=== PATIENT | male | born 1940 | race Caucasian/White ===

== ENCOUNTER 2022-07-31 16:16 | Emergency (ER) | payer OTHER, MEDICAID ==
[~2022-07-31] VITALS: Ht 170.2 cm; Wt 59.0 kg
--- NOTE | 2022-07-31 16:18 | NUR ---
PT PLACED IN BED 08 BY [facility]
[2022-07-31 16:20] VITALS: BP 119/72
[2022-07-31] MEDS ORDERED: BACITRACIN OINT 500 UNITS/GM PKT TP ONE (16:25)
[2022-07-31] MEDS ORDERED: HYDROcodone/APAP 5/325 MG 1 TAB TAB PO ONE (16:25)
--- NOTE | 2022-07-31 16:55 | NUR ---
X-Ray at bedside.
--- NOTE | 2022-07-31 18:17 | NUR ---
STACEY FROM [facility] GIVEN REPORT, PT WILL BE DX BACK TO FACILITY.
[2022-07-31] MEDS ORDERED: BACI-416 TP (18:21)
[2022-07-31] MEDS ORDERED: ACET-10509 PO (18:21)
--- NOTE | 2022-07-31 18:30 | NUR ---
Note undone in EDM - 08/01/22 at 0810 by [email or web address] Patient discharged with v/s stable. Written and verbal after care instructions given and explained. Patient alert, oriented and verbalized understanding of instructions. Wheel Chair Assisted with to car. All questions addressed prior to discharge. ID band removed. Patient advised to follow up with PMD. Rx of BACITRACIN, TYLENOL (SENT) given. Patient educated on indication of medication including possible reaction and side effects. Opportunity to ask questions provided and answered.
--- NOTE | 2022-07-31 19:54 | NUR ---
Report given to [facility] for transfer of care.
--- NOTE | 2022-07-31 20:06 | NUR ---
X-Ray at bedside.
--- NOTE | 2022-08-01 03:44 | NUR ---
PT RESTING IN BED DISPO COMPLETE. PENDING TRANSPORTION IN AM
--- NOTE | 2022-08-01 06:22 | NUR ---
PT ASLEEP IN BED ON BEDSIDE POWER BUILDER DEVELOPER RESP EVEN AND UNLABORED. HOB ELEVATED. PT WILL BE TRANSPORTED BACK TO FACILITY IN AM
--- NOTE | 2022-08-01 07:24 | NUR ---
REPORT RECEIVED FROM ABI LI. ASSUMED CARE AT THIS TIME
--- NOTE | 2022-08-01 07:52 | NUR ---
pt provided w/ breakfast . pt awake and eating in bed
--- NOTE | 2022-08-01 08:10 | NUR ---
pt offered new gown and linens. pt denied
--- NOTE | 2022-08-01 09:37 | NUR ---
pt repositioned in L recumbent
--- NOTE | 2022-08-01 11:24 | NUR ---
[facility] CONTACTED AND UPDATED ON PT STATUS/TX ETA. SPOKE W/ DARIO LI.
--- NOTE | 2022-08-01 12:34 | NUR ---
[facility] AT BEDSIDE
[2022-08-01 12:35] VITALS: BP 112/63
--- NOTE | 2022-08-01 12:38 | NUR ---
Patient discharged with v/s stable. Written and verbal after care instructions FOR ANKLE SPRAIN AND RICE THERAPY given and explained. Patient alert, oriented and verbalized understanding of instructions. [facility] VIA GURNEY to custodial. All questions addressed prior to discharge. ID band removed. Patient advised to follow up with PMD. Rx of TYLENOL XTRA STRENGTH AND BACITRACIN given. Opportunity to ask questions provided and answered.
== END 2022-08-01 12:36 ==
LOC: MED 16:16
DX: S82.61XA Displaced fracture of lateral malleolus of right fibula, initial encounter for closed fracture (principal); I50.9 Heart failure, unspecified; I26.99 Other pulmonary embolism without acute cor pulmonale; I10 Essential (primary) hypertension; Z79.899 Other long term (current) drug therapy; Z98.890 Other specified postprocedural states; W18.30XA Fall on same level, unspecified, initial encounter; Y93.89 Activity, other specified; Y92.89 Other specified places as the place of occurrence of the external cause; Y99.8 Other external cause status
CPT/HCPCS: 73560; 73600; 73610; 90471; 90715; 99285; Q0092; 99284

== ENCOUNTER 2022-10-12 17:19 | Inpatient (IN) | payer OTHER ==
[~2022-10-12] VITALS: Ht 170.2 cm; Wt 68.5 kg
[~2022-10-12 17:19] MED LIST: ACET-10509 PO; BACI-416 TP
[2022-10-12 17:20] VITALS: BP 148/72
--- NOTE | 2022-10-12 17:21 | NUR ---
82 yo/m [facility] from [facility] w c/o sob x approx 2 hours, + hypoxia 80s% on room air, biba on non-rebreather 15L. pt awake and alert only unsure of todays date, presents tachycardic, rales to upper lobes. denies chest pain. stalin hall at bedside, RT bedside. pmh:dm, high cholesterol, cardiomyopathy, chf, PEs, pneumonia, recent R ankle fracture still in cast allergies: denies Addendum: 10/12/22 at 1825 by [email or web address] correction L ankle fracture not R
--- NOTE | 2022-10-12 17:25 | NUR ---
pt adds L leg pain to touch otherwise nopain, numbness or tingling. minimum rom d/t pain, cap refil <2sec to L toes. leg cast on foot to mid leg.
[2022-10-12] MEDS ORDERED: ACETAMINOPHEN 325 MG TAB PO ONE (17:35)
--- NOTE | 2022-10-12 17:50 | NUR ---
4908 covid and flu swabs collected and sent to lab
--- NOTE | 2022-10-12 17:50 | NUR ---
pt now on high mio 35L, 100 fio pt o2 sat 94%
[2022-10-12 18:10] LABS: BASOPHILS # (AUTO) 0.1 K/uL (0.00-0.22); BASOPHILS % (AUTO) 0.4 % (0.0-2.0); EOSINOPHILS % (AUTO) 0.1 % (0.0-4.0); HEMATOCRIT 38.7 % (36-52); HEMOGLOBIN 12.8 g/dL (12.0-18.0); LYMPHOCYTES # (AUTO) 1.3 K/uL (2.0-11.5); LYMPHOCYTES % (AUTO) 9.4 % (20.5-51.1); MEAN CORPUSCULAR HEMOGLOBIN 28 pg (27-31); MEAN CORPUSCULAR HGB CONC 33 g/dL (33-37); MEAN CORPUSCULAR VOLUME 82.9 fL (80-94); MONOCYTES # (AUTO) 0.5 K/uL (0.8-1.0); MONOCYTES % (AUTO) 3.4 % (1.7-9.3); NEUTROPHILS # (AUTO) 12.3 K/uL (1.8-7.7); NEUTROPHILS % (AUTO) 86.7 % (42.2-75.2); PLATELET COUNT (AUTO) 302 K/uL (140-450); RED BLOOD CELL COUNT(AUTO) 4.67 MIL/uL (4.20-6.10); RED CELL DISTRIBUTION WIDTH 14.9 % (11.6-13.7); WHITE BLOOD COUNT (AUTO) 14.2 K/uL (4.8-10.8)
[2022-10-12] MEDS ORDERED: PIPERACILLIN/TAZOBACTAM 3.375 GM in DEXTROSE 5% 50 ML IV ONE (18:15)
[2022-10-12] MEDS ORDERED: LEVOFLOXACIN 750 MG/D5W PREMIX 150 ML IV ONE (18:15)
--- NOTE | 2022-10-12 18:18 | NUR ---
US at bedside
[2022-10-12 18:21] LABS: PROTHROMBIN TIME 9.5 secs (10.8-13.4)
[2022-10-12 18:26] LABS: ALBUMIN 2.9 g/dL (3.4-5.0); ANION GAP 11.6 (8-16); ASPARTATE AMINOTRANSFERASE 23 U/L (15-37); CARBON DIOXIDE 32.5 mmol/L (21-32); CHLORIDE 93 mmol/L (98-107); GLUCOSE 248 mg/dL (74-106); POTASSIUM 4.1 mmol/L (3.5-5.1); SODIUM SERUM 133 mmol/L (136-145); TOTAL BILIRUBIN 0.8 mg/dL (0.0-1.0); UREA NITROGEN, BLOOD 25 mg/dL (7-18)
[2022-10-12] MEDS ORDERED: PIPERACILLIN/TAZOBACTAM 3.375 GM VIAL IV ONE (18:26)
--- NOTE | 2022-10-12 18:30 | NUR ---
CRITICAL LAB. LACTIC ACID 3.5. AWARE
[2022-10-12] MEDS ORDERED: NACL 0.9% 500 ML IV ONE (18:45)
[2022-10-12] MEDS ORDERED: ACET-2619 PO (18:51)
[2022-10-12] MEDS ORDERED: ASCO-5 PO (18:51)
[2022-10-12] MEDS ORDERED: PRON INH (18:51)
[2022-10-12] MEDS ORDERED: METF-1139 PO (19:07)
[2022-10-12] MEDS ORDERED: LACT-103 PO (19:07)
[2022-10-12] MEDS ORDERED: BISA-218 RC (19:07)
[2022-10-12] MEDS ORDERED: INSU100I51 SQ (19:07)
[2022-10-12] MEDS ORDERED: INSU100S5 IJ (19:07)
[2022-10-12] MEDS ORDERED: CRAN450T5 PO (19:07)
[2022-10-12] MEDS ORDERED: DOCU-299 PO (19:07)
[2022-10-12] MEDS ORDERED: FINA5TAB1 PO (19:07)
[2022-10-12] MEDS ORDERED: FURO-572 PO (19:07)
[2022-10-12] MEDS ORDERED: ATOR40TA PO (19:07)
[2022-10-12] MEDS ORDERED: APIX2.5 PO (19:07)
[2022-10-12] MEDS ORDERED: MAGN400S60 PO (19:12)
[2022-10-12] MEDS ORDERED: MULT15TA3 PO (19:12)
--- NOTE | 2022-10-12 19:19 | NUR ---
PT REPORT TO [facility] HOW[facility]
--- NOTE | 2022-10-12 19:20 | NUR ---
Patient resting in bed, awake, chest rise and fall symmetrical, no s/s of distress, on monitor. Addendum: 10/12/22 at 2024 by [email or web address] Patient resting in bed, A/Ox4, chest rise and fall symmetrical, no c/o pain or s/s of distress, on monitor. Patient refuses to let ER staff unwrap left foot to check for wounds. Patient states" that is a cast from a broken ankle. You are not unwrapping my foot."
[2022-10-12] MEDS ORDERED: [UNRECOGNIZED DRUG - OTHER] (19:26)
[2022-10-12] MEDS ORDERED: LEVO5TAB32 PO (19:26)
[2022-10-12] MEDS ORDERED: GLUCAGON EMERGENCY (19:26)
[2022-10-12] MEDS ORDERED: POLY15SO48 OP (19:26)
[2022-10-12] MEDS ORDERED: SODIUM PHOSPHATE (19:26)
[2022-10-12] MEDS ORDERED: CHOL500040 PO (19:26)
[2022-10-12] MEDS ORDERED: DEXTROSE 50% (19:26)
[2022-10-12] MEDS ORDERED: ONDANSETRON 4 MG/2 ML VIAL IVP PRN (20:00)
[2022-10-12] MEDS ORDERED: MAG SULF 2000 MG/WATER PREMIX 50 ML IV PRN (20:00)
[2022-10-12] MEDS ORDERED: ALBUTEROL 0.083% 2.5 MG/3 ML NEBU INH PRN (20:00)
[2022-10-12] MEDS ORDERED: ZOLPIDEM 10 MG TAB PO PRN (20:00)
[2022-10-12] MEDS ORDERED: LORazepam 2 MG/ML VIAL IVP PRN (20:00)
[2022-10-12] MEDS ORDERED: DEXTROSE 50% 50 ML SYR IVP PRN (20:00)
[2022-10-12] MEDS ORDERED: MORPHINE SULFATE 2 MG/ML SYR IVP PRN (20:00)
[2022-10-12] MEDS ORDERED: DOCUSATE SODIUM 100 MG GELCAP PO PRN (20:00)
[2022-10-12 20:09] VITALS: BP 104/47
--- NOTE | 2022-10-12 20:15 | NUR ---
SPO2 100% FIO2 TITRATED FROM 100% TO 80%. PT TOLERATING WELL. RN NOTIFIED. WILL CONTINUE TO MONITOR PT
[2022-10-12] MEDS: NACL 0.9% 1,000 ML IV SCH (20:58)
--- NOTE | 2022-10-12 21:00 | NUR ---
Patient resting in bed, A/Ox4, chest rise and fall symmetrical, no c/o pain or s/s of distress, on monitor.
[2022-10-12] MEDS: BLOOD GLUCOSE MONITORING 1 DEV DEV FS SCH (21:09)
[2022-10-12] MEDS: INSULIN LISPRO SLIDING SCALE 100 UNITS/ML VIAL SUBQ PRN (21:11)
[2022-10-12] MEDS: APIXABAN 2.5 MG TAB PO SCH (21:17)
[2022-10-12] MEDS: ATORVASTATIN 20 MG TAB PO SCH (21:17)
--- NOTE | 2022-10-12 21:30 | NUR ---
Patient will be admitted to care of Dr. Fink. Admited to telemetry. Will go to room 107A. Belongings list completed. Report to Telemetry Nurse Micky URBINA. Telemetry Nurse Micky URBINA verbalized understanding of report, no further questions.
[2022-10-12 21:40] VITALS: BP 105/73
--- NOTE | 2022-10-12 21:40 | NUR ---
RECEIVED REPORT FROM ER NURSE ANITA FOR CONTINUITY OF CARE. PATIENT IS A&O X4. PATIENT IS ON HIGH FLOW NC 35L 80% FIO2. PATIENT'S IV IS A 20G RAC, RUNNING NS 60. PATIENT'S LEFT FOOT IS BANDAGED AND WRAPPED. PATIENT STATES THAT HE HAS A CAST ON HIS LEFT FOOT DUE TO A LEFT ANKLE FRACTURE ON 07-29-2022. PATIENT ALSO STATES THAT HE HAS A BONE STICKING OUT OF HIS LEFT BIG TOE. PATIENT IS COOPERATIVE WITH ANSWERING QUESTIONS. BED IS IN LOWEST POSITION, WHEELS LOCKED, CALL LIGHT IN PLACE.
[2022-10-13] VITALS: BP 103/79
--- NOTE | 2022-10-13 01:00 | NUR ---
PATIENT WAS COOPERATIVE DURING ADMISSION. HAD CHARGE NURSE PATIENCE LOOK AT PATIENT'S LEFT TOE. LEFT TOE APPEARS TO HAVE A DRIED UP SCAB ON IT WITH NO SIGN OF A BONE STICKING OUT. INFORMED PATIENT THAT IT LOOKED LIKE A SCAB AND NOT A BONE. PATIENT STATED, "OH OKAY". WILL CONTINUE TO OBSERVE PATIENT.
[2022-10-13] MEDS ORDERED: PIPERACILLIN/TAZOBACTAM 3.375 GM VIAL IV ONE (03:17)
[2022-10-13] MEDS: PIPERACILLIN/TAZOBACTAM 3.375 GM in DEXTROSE 5% 50 ML IV SCH ×3 (03:24→19:54)
[2022-10-13 04:00] VITALS: BP 98/56
[2022-10-13 06:47] LABS: ANION GAP 7.1 (8-16); CARBON DIOXIDE 34.4 mmol/L (21-32); CHLORIDE 98 mmol/L (98-107); CREATININE 0.8 mg/dL (0.6-1.3); GLUCOSE 169 mg/dL (74-106); POTASSIUM 3.5 mmol/L (3.5-5.1); SODIUM SERUM 136 mmol/L (136-145); UREA NITROGEN, BLOOD 19 mg/dL (7-18)
[2022-10-13 06:53] LABS: BASOPHILS % (AUTO) 0.1 % (0.0-2.0); EOSINOPHILS % (AUTO) 0.1 % (0.0-4.0); HEMATOCRIT 35.8 % (36-52); HEMOGLOBIN 11.8 g/dL (12.0-18.0); LYMPHOCYTES # (AUTO) 1.3 K/uL (2.0-11.5); LYMPHOCYTES % (AUTO) 12.5 % (20.5-51.1); MEAN CORPUSCULAR HEMOGLOBIN 27 pg (27-31); MEAN CORPUSCULAR HGB CONC 33 g/dL (33-37); MEAN CORPUSCULAR VOLUME 83.1 fL (80-94); MONOCYTES # (AUTO) 0.3 K/uL (0.8-1.0); MONOCYTES % (AUTO) 3.4 % (1.7-9.3); NEUTROPHILS # (AUTO) 8.5 K/uL (1.8-7.7); NEUTROPHILS % (AUTO) 83.9 % (42.2-75.2); PLATELET COUNT (AUTO) 239 K/uL (140-450); RED BLOOD CELL COUNT(AUTO) 4.31 MIL/uL (4.20-6.10); RED CELL DISTRIBUTION WIDTH 14.5 % (11.6-13.7); WHITE BLOOD COUNT (AUTO) 10.1 K/uL (4.8-10.8)
--- NOTE | 2022-10-13 07:00 | NUR ---
PATIENT WAS AWAKE UNTIL ABOUT 0300 AND THEN FELL ASLEEP. PATIENT SLEPT THROUGHOUT THE NIGHT. WILL ENDORSE CARE TO DAY SHIFT NURSE.
[2022-10-13] MEDS: BLOOD GLUCOSE MONITORING 1 DEV DEV FS SCH ×4 (07:16→20:04)
--- NOTE | 2022-10-13 07:55 | NUR ---
ENDORSED TO DAY SHIFT NURSE ROMA FOR CONTINUITY OF CARE. PATIENT IS STABLE.
[2022-10-13 08:00] VITALS: BP 100/58
--- NOTE | 2022-10-13 09:19 | NUR ---
PATIENT HAS BEEN SCREENED AND CATEGORIZED MODERATE NUTRITION RISK. PATIENT WILL BE SEEN WITHIN 3-5 DAYS OF ADMISSION. REVIEWED BY PERLITA CHIRINOS RD
[2022-10-13] MEDS: FUROSEMIDE 20 MG TAB PO SCH (09:26)
[2022-10-13] MEDS: APIXABAN 2.5 MG TAB PO SCH ×2 (09:27→20:19)
[2022-10-13] MEDS: metFORMIN 500 MG TAB PO SCH ×2 (09:27→18:13)
[2022-10-13] MEDS: INSULIN LISPRO SLIDING SCALE 100 UNITS/ML VIAL SUBQ PRN ×3 (12:04→20:17)
[2022-10-13 12:28] VITALS: BP 107/52
[2022-10-13] MEDS: NACL 0.9% 1,000 ML IV SCH (12:58)
--- NOTE | 2022-10-13 13:37 | NUR ---
DC PLANNING ASSESSMENT COMPLETE PLEASE REFER TO ASSESSMENT FOR ADDITIONAL DETAILS CARLA IS REQUESTING PT RETURN TO [facility]F [facility] TO RECEIVE PT. CARLA REPORTS USP GOAL IS TO HAVE PT TRANSITION TO ASSISTED LIVING ONCE PT HAS REGAINED STRENGTH TO CARE FOR HIMSELF HE CURRENTLY UNABLE TO. EXPLAINED TO CARLA SKILLED VS SNF VS ASSISTED LIVING. NOTIFIED CARLA THAT SW WOULD ENDORSE TO CM. CARLA REQUESTING CLINICAL UPDATE AND WAS TRANSFERRED TO PTS NURSE. SW ENDORSED TO CM. Addendum: 10/13/22 at 1337 by Loree VEGA Amended: Links added.
--- NOTE | 2022-10-13 15:23 | NUR ---
DC PLANN[age] YRS OLD WAS ADMITTED FROM [facility] WITH A DX OF SEPSIS. PATIENT HAS AHX OF CHF, PE, PNEUMONIA, RECENT LEFT FOOT FRACTURE AND DM. CXR SHOWED CARDIOMEGALY AND PULMONARY VASCULAR CONGESTION AND MINIMAL BILATERAL PLEURAL EFFUSION VENOUS DOPPLER NO DVT. RAPID COVID TEST NEGATIVE. BLOOD CULTURE PENDING. ADMINISTERED IVF, IV ZOSYN AND CONTINUED HOME MEDS. DC PLAN TO RETURN TO [facility] WHEN STABLE. Addendum: 10/18/22 at 1342 by MAYELA CAMPA CM RECEIVED ORDER FOR PATIENT TO GO BACK TO SNF FOR CONTINUE OF CARE. FAXED ALL PAPERWORK TO [facility]. SPOKE WITH CHRISTIANNE AT [facility] LOCATED AT [address] [place] [address]. PATIENT WAS ACCEPTED BACK AND WILL BE GOING TO ROOM 9-[address] UNDER DR MARTÍNEZ. TRANSPORTATION ARRANGED WITH [facility] FOR A [employer] SUPPORT SPECIALIST TIME. [facility] IS INFORMED TO CALL NURSING STATION WITH ANY UPDATES ON TRANSPORTATION INFORMATION. CHARGE NURSE ABEL AND DAUGHTER CARLA AWARE OF THE ABOVE INFORMATION. Addendum: 10/18/22 at 1417 by MAYELA CAMPA CM SPOKE WITH KAREN AT [facility] TRANSPORTATION TRANSPORTERS NAME IS [facility] AUTH #[id number] WITH A [employer] SUPPORT SPECIALIST TIME.
[2022-10-13 16:00] VITALS: BP 104/60
[2022-10-13 20:00] VITALS: BP 111/60
[2022-10-13] MEDS: ATORVASTATIN 20 MG TAB PO SCH (20:20)
[2022-10-14] VITALS: BP 100/60
--- NOTE | 2022-10-14 | NUR ---
ROUNDS , NO S/SX OF ACUTE DISTRESS NOTED , 02 SAT WNL , NO COMPLAIN MADE , CALL LIGHT WITHIN REACH .
[2022-10-14] MEDS: NACL 0.9% 1,000 ML IV SCH (01:50)
--- NOTE | 2022-10-14 02:00 | NUR ---
SLEEPING , CHEST RISE AND FALL EQUALLY , HOOK ON O2 SAT MONITOR - O2 SAT WNL , CALL LIGHT WITHIN REACH .
[2022-10-14 04:00] VITALS: BP 114/53
--- NOTE | 2022-10-14 04:00 | NUR ---
ROUNDS , NO COMPLAIN MADE , WILL CONT. TO MONITOR
[2022-10-14] MEDS: PIPERACILLIN/TAZOBACTAM 3.375 GM in DEXTROSE 5% 50 ML IV SCH ×3 (04:10→21:51)
--- NOTE | 2022-10-14 04:20 | NUR ---
RT AT BEDSIDE / ASSESSING BY RT , WILL CONT. TO MONITOR . CALL LIGHT WITHIN REACH . Addendum: 10/14/22 at 0421 by Vannesa Nina RN THE ABOVE NURSE'S NOTE IS AN ERROR ENTRY - WRONG PT - ARMEN
--- NOTE | 2022-10-14 06:00 | NUR ---
ENDORSED PT FOR CONT. OF CARE . AWAKE , THE LAPTOP AND THE CELLPHONE AND THE ORGAN TUNER ELECTRONIC AT BEDSIDE , INFORMED ROMA GIL ABOUT IT . Addendum: 10/14/22 at 0743 by Vannesa Nina RN THE ABOVE NURSE'S NOTE IS TIME ERROR ENTRY , INSTEAD OF 0773 - ARMEN
[2022-10-14] MEDS: BLOOD GLUCOSE MONITORING 1 DEV DEV FS SCH ×4 (06:25→21:47)
[2022-10-14] MEDS: metFORMIN 500 MG TAB PO SCH ×2 (07:56→17:06)
[2022-10-14] MEDS: BENZOCAINE/MENTHOL 1 LOZ MM PRN ×4 (07:56→21:52)
[2022-10-14 08:00] VITALS: BP 112/61
[2022-10-14 08:08] LABS: BASOPHILS % (AUTO) 0.3 % (0.0-2.0); EOSINOPHILS # (AUTO) 0.1 K/uL (0-0.4); EOSINOPHILS % (AUTO) 1.6 % (0.0-4.0); HEMATOCRIT 35.4 % (36-52); HEMOGLOBIN 11.7 g/dL (12.0-18.0); LYMPHOCYTES # (AUTO) 1.7 K/uL (2.0-11.5); MEAN CORPUSCULAR HEMOGLOBIN 28 pg (27-31); MEAN CORPUSCULAR HGB CONC 33 g/dL (33-37); MONOCYTES # (AUTO) 0.5 K/uL (0.8-1.0); MONOCYTES % (AUTO) 7.4 % (1.7-9.3); NEUTROPHILS # (AUTO) 3.9 K/uL (1.8-7.7); NEUTROPHILS % (AUTO) 63.7 % (42.2-75.2); PLATELET COUNT (AUTO) 245 K/uL (140-450); RED BLOOD CELL COUNT(AUTO) 4.22 MIL/uL (4.20-6.10); RED CELL DISTRIBUTION WIDTH 14.5 % (11.6-13.7); WHITE BLOOD COUNT (AUTO) 6.1 K/uL (4.8-10.8)
--- NOTE | 2022-10-14 09:09 | NUR ---
PT. WITH LOW KETAN SCALE AT MODERATE TO HIGH RISK, CONTINUE TO FOLLOW PRESSURE INJURY PREVENTION INTERVENTIONS. PT. ADMITTED WITH DRY STABLE SCAB TO LEFT HALLUX TOE. JOSE- WOUND SKIN DRY, CLEAN INTACT. -POSITIONING: TURN AND REPOSITION PATIENT Q 2H OR SOONER USE PILLOWS TO KEEP BONY PROMINENCES FROM DIRECT CONTACT WITH SURFACES USE REPOSITIONING WEDGES TO PROVIDE 30-DEGREE ANGLE FOR SIDE LYING POSITIONS OFFLOADING OR FOAM DRESSING TO ALL TUBING TO PREVENT MEDICAL DEVICES RELATED PRESSURE INJURY -RE-EVALUATING AND MANAGING INCONTINENCE MONITOR SKIN CONDITION DURING POSITION CHANGE DO NOT MASSAGE REDNESS, BONY PROMINENCES FREQUENT JOSE-CARE AND PROVIDE BARRIER CREAMS PRN IF SOILING MOISTURE CONTROL BY OFFER BED LE/URINAL /ABSORBENT PAD TO WICK AND HOLD MOISTURE KEEP SKIN DRY AND PROTECT FROM FRICTION -MANAGE FRICTION/SHEAR/MOBILITY KEEP HOB AT THE LOWEST LEVEL OF ELEVATION NO MORE THAN 30 DEGREE UNLESS OTHERWISE CONTRAINDICATED USE LIFT SHEET OR TRANSFER DEVICE TO MOVE PATIENT AND PREVENT LATERAL SHEER. PROTECT HEELS, ELBOWS BONY PROMINENCES WITH SKIN BERRIES OR FOAM DRESSING IF EXPOSED TO FRICTION OFFLOAD BILATERAL HEELS BY PLACING PILLOWS UNDER CALVES AT ALL TIMES, UNLESS OTHERWISE CONTRAINDICATED -PRESSURE REDISTRIBUTION SURFACE THERAPY JACOB ISOFLEX MATTRESS -NUTRITION: PLEASE FOLLOW RD RECOMMENDATIONS AND OFFER NUTRITION SUPPLEMENTS IF ORDERED. PLEASE CONTACT WOUND CARE NURSE FOR ANY QUESTION AND CHANGE OF WOUND CONDITION.
[2022-10-14 09:12] LABS: POTASSIUM 3.2 mmol/L (3.5-5.1); SODIUM SERUM 140 mmol/L (136-145)
[2022-10-14 09:13] LABS: ANION GAP 9.3 (8-16); CARBON DIOXIDE 33.9 mmol/L (21-32); CHLORIDE 100 mmol/L (98-107); CREATININE 0.8 mg/dL (0.6-1.3); GLUCOSE 169 mg/dL (74-106); UREA NITROGEN, BLOOD 15 mg/dL (7-18)
[2022-10-14] MEDS: FUROSEMIDE 20 MG TAB PO SCH (09:15)
[2022-10-14] MEDS: APIXABAN 2.5 MG TAB PO SCH ×2 (09:15→21:50)
[2022-10-14 12:00] VITALS: BP 110/53
[2022-10-14] MEDS: INSULIN LISPRO SLIDING SCALE 100 UNITS/ML VIAL SUBQ PRN ×2 (12:00→17:10)
[2022-10-14 16:00] VITALS: BP 113/62
[2022-10-14] MEDS: POTASSIUM CHLORIDE 10 MEQ TABER PO PRN (19:17)
[2022-10-14 20:00] VITALS: BP_SYST 123; BP_SYST 128; BP_DIAS 58; BP_DIAS 63
--- NOTE | 2022-10-14 21:47 | NUR ---
BLOOD SUGAR CHECKED = 211. PT REFUSED TO HAVE INSULIN PER SLIDING SCALE. EXPLAINED TO PT THE RISKS AND BENEFITS OF INSULIN X 3. PT STILL REFUSE. PT STATED: "I WILL HAVE INSULIN TOMORROW MORNING. MY BLOOD SUGAR LEVEL USUALLY GO DOWN IN THE MORNING".
[2022-10-14] MEDS: ATORVASTATIN 20 MG TAB PO SCH (21:51)
--- NOTE | 2022-10-14 21:52 | NUR ---
PT REQUESTS 2 CEPACOLS FOR SORE THROAT. EXPLAIN TO PT ABOUT DOCTOR'S ORDER IS 1 CEPACOL EVERY 2 HRS PRN. PT INSISTED AND AGITATED NURSE ADMINISTERED 1 CEPACOL ORDER.
[2022-10-15] MEDS: BENZOCAINE/MENTHOL 1 LOZ MM PRN ×2 (00:17→04:55)
--- NOTE | 2022-10-15 00:17 | NUR ---
ADMINISTERED 1 CEPACOL, PT INSISTED TO HAVE 2 CEPACOLS. EXPLAINED TO PT RISKS AND BENEFITS RELATED TO MD ORDER. PT FINALLY AGREE TO HAVE CEPACOL PER DOCTOR'S ORDER 1 CEPACOL EVERY 2 HRS . PT REFUSE VITAL SIGNS TO BE CHECKED. PT STATED: "YOU CAN CHECK MY BLOOD PRESSURE LATER AT 4AM, NOT NOW". PT IS TELEMETRY.
[2022-10-15] MEDS: NACL 0.9% 1,000 ML IV SCH (00:26)
--- NOTE | 2022-10-15 02:46 | NUR ---
PT COMPLAINTS OF MODERATE PAIN 6/10 OF HIS RIGHT LEG. PAIN MEDICATION MORPHINE ADMINISTERED ORDER.
[2022-10-15 04:00] VITALS: BP 123/58
[2022-10-15] MEDS: PIPERACILLIN/TAZOBACTAM 3.375 GM in DEXTROSE 5% 50 ML IV SCH ×3 (05:40→20:59)
[2022-10-15] MEDS: BLOOD GLUCOSE MONITORING 1 DEV DEV FS SCH ×4 (06:48→20:51)
--- NOTE | 2022-10-15 06:48 | NUR ---
PT BLOOD SUGAR = 191. PER SLIDING SCALE PT NEEDS 2 UNITS OF INSULIN. PT REFUSED INSULIN INJECTION. EXPLAINED RISKS AND BENEFITS X 3, PT STILL REFUSED.
[2022-10-15] MEDS: INSULIN LISPRO SLIDING SCALE 100 UNITS/ML VIAL SUBQ PRN ×2 (06:51→20:58)
--- NOTE | 2022-10-15 07:00 | NUR ---
RECEIVED BEDSIDE REPORT FROM NIGHTSHIFT NURSE. PT IS AWAKE IN BED, STABLE, NO SIGNS OF DISTRESS, NO REPORTS OF PAIN AT THIS TIME. REORIENTED PT TO CALL LIGHT. WILL CONTINUE WITH PT CARE.
--- NOTE | 2022-10-15 07:15 | NUR ---
PT ON PHONE UPON ARRIVAL. PT SATURATION AND RESPIRATORY RATE WERE NORMAL. NO DISTRESS NOTED. NO CHANGES MADE TO HFNC SETTING. REPLACED EMPTY WATER BAG ON HFNC. WILL CONTINUE TO MONITOR PT.
[2022-10-15 07:38] LABS: ANION GAP 7.1 (8-16); CHLORIDE 99 mmol/L (98-107); CREATININE 0.7 mg/dL (0.6-1.3); GLUCOSE 202 mg/dL (74-106); POTASSIUM 3.1 mmol/L (3.5-5.1); SODIUM SERUM 139 mmol/L (136-145); UREA NITROGEN, BLOOD 9 mg/dL (7-18)
[2022-10-15 08:00] VITALS: BP 117/52
[2022-10-15] MEDS: metFORMIN 500 MG TAB PO SCH ×2 (09:41→17:00)
[2022-10-15] MEDS: APIXABAN 2.5 MG TAB PO SCH ×2 (09:42→20:53)
[2022-10-15] MEDS: FUROSEMIDE 20 MG TAB PO SCH (09:44)
[2022-10-15] MEDS: POTASSIUM CHLORIDE 10 MEQ TABER PO PRN (09:47)
[2022-10-15 12:00] VITALS: BP 128/59
--- NOTE | 2022-10-15 12:42 | NUR ---
PT BLOOD SUGAR CHECKED, B. PT REFUSED INSULIN ADMIN. EDUCATED PT ON RISKS OF NON-ADMIN OF INSULIN AND BENEFITS OF ADMIN OF INSULIN. PT BECAME FRUSTRATED AND STILL REFUSE.
[2022-10-15] MEDS: ACETAMINOPHEN 325 MG TAB PO PRN ×2 (12:49→21:00)
[2022-10-15 16:00] VITALS: BP 132/72
--- NOTE | 2022-10-15 19:00 | NUR ---
ENDORSED TO NIGHTSHIFT NURSE FOR CONTINUITY OF CARE. PT IS ASLEEP IN BED, WOKE TO NAME AND TOUCH. NO SIGNS OF DISTRESS.
[2022-10-15 20:00] VITALS: BP 133/62
[2022-10-15] MEDS: ATORVASTATIN 20 MG TAB PO SCH (21:08)
[2022-10-16] VITALS (7 sets, daily range): BP systolic 100–130; BP diastolic 51–65
[2022-10-16] MEDS: ACETAMINOPHEN 325 MG TAB PO PRN (02:44)
[2022-10-16] MEDS: PIPERACILLIN/TAZOBACTAM 3.375 GM in DEXTROSE 5% 50 ML IV SCH ×3 (05:35→20:27)
[2022-10-16] MEDS: BLOOD GLUCOSE MONITORING 1 DEV DEV FS SCH ×4 (06:00→21:06)
[2022-10-16 07:09] LABS: BASOPHILS % (AUTO) 0.3 % (0.0-2.0); EOSINOPHILS # (AUTO) 0.2 K/uL (0-0.4); EOSINOPHILS % (AUTO) 2.7 % (0.0-4.0); HEMATOCRIT 37.8 % (36-52); HEMOGLOBIN 12.5 g/dL (12.0-18.0); LYMPHOCYTES # (AUTO) 1.8 K/uL (2.0-11.5); LYMPHOCYTES % (AUTO) 25.8 % (20.5-51.1); MEAN CORPUSCULAR HEMOGLOBIN 28 pg (27-31); MEAN CORPUSCULAR HGB CONC 33 g/dL (33-37); MEAN CORPUSCULAR VOLUME 83.5 fL (80-94); MONOCYTES # (AUTO) 0.8 K/uL (0.8-1.0); MONOCYTES % (AUTO) 12.1 % (1.7-9.3); NEUTROPHILS # (AUTO) 4.1 K/uL (1.8-7.7); NEUTROPHILS % (AUTO) 59.1 % (42.2-75.2); PLATELET COUNT (AUTO) 330 K/uL (140-450); RED BLOOD CELL COUNT(AUTO) 4.53 MIL/uL (4.20-6.10); RED CELL DISTRIBUTION WIDTH 14.7 % (11.6-13.7); WHITE BLOOD COUNT (AUTO) 6.9 K/uL (4.8-10.8)
[2022-10-16 07:11] LABS: CARBON DIOXIDE 36.4 mmol/L (21-32); CHLORIDE 98 mmol/L (98-107); CREATININE 0.7 mg/dL (0.6-1.3); GLUCOSE 206 mg/dL (74-106); POTASSIUM 3.4 mmol/L (3.5-5.1); SODIUM SERUM 138 mmol/L (136-145); UREA NITROGEN, BLOOD 8 mg/dL (7-18)
--- NOTE | 2022-10-16 07:20 | NUR ---
RECEIVED ENDORSEMENT FROM FORENSIC ACCOUNTANT NURSE FOR CONTINUITY OF CARE. PT IS AWAKE AND ALERT. WILL REVIEW POC, CALL BONILLA WITHIN REACH. WILL CONTINUE TO MONITOR.
[2022-10-16] MEDS: FUROSEMIDE 20 MG TAB PO SCH (08:58)
[2022-10-16] MEDS: metFORMIN 500 MG TAB PO SCH ×2 (08:58→17:26)
[2022-10-16] MEDS: APIXABAN 2.5 MG TAB PO SCH ×2 (08:59→20:28)
[2022-10-16] MEDS: POTASSIUM CHLORIDE 10 MEQ TABER PO PRN (09:48)
[2022-10-16] MEDS: INSULIN LISPRO SLIDING SCALE 100 UNITS/ML VIAL SUBQ PRN ×3 (11:38→21:12)
[2022-10-16] MEDS: BENZOCAINE/MENTHOL 1 LOZ MM PRN ×3 (11:48→18:59)
--- NOTE | 2022-10-16 19:30 | NUR ---
RECEIVED REPORT FROM DAY SHIFT NURSE EMMETT FOR CONTINUITY OF CARE. PATIENT IS ON HIGH FLOW NC 20L 35%; BREATHING IS NORMAL WITH SYMMETRICAL RISE AND FALL OF CHEST. IV IS A 20G RAC, NO FLUIDS RUNNING AT THIS TIME. PATIENT IS LYING IN SEMI-FOWLERS POSITION, VISITING WITH FAMILY. BED IS IN LOWEST POSITION, WHEELS LOCKED, CALL LIGHT IN PLACE. WILL CONTINUE TO OBSERVE PATIENT.
[2022-10-16] MEDS: ATORVASTATIN 20 MG TAB PO SCH (20:27)
[2022-10-17] VITALS: BP 114/60
--- NOTE | 2022-10-17 | NUR ---
2100 MEDICATIONS WERE ADMINISTERED TO PATIENT. PATIENT TOLERATED WELL WITHOUT ANY DIFFICULTY SWALLOWING. IVPB ANTIBIOTIC WAS ADMINISTERED SUCCESSFULLY WITHOUT ANY ISSUES WITH IV SITE. PATIENT HAD VOIDED AND HAD A BM. PATIENT WAS CLEANED AND CHANGED WITH THE ASSISTANCE OF NURSE MCKINLEY. PATIENT DID NOT WANT TO BE TOUCHED DURING THE CHANGING PROCESS. PATIENT TURNED HIMSELF AND WE CLEANED HIM VERY DELICATELY PER HIS REQUEST. NEW CHUCKS PADS AND DIAPER WERE PLACED UNDER HIM. DIAPER WAS TAPED CLOSED ON LEFT SIDE, BUT NOT ON THE RIGHT PER PATIENT'S REQUEST. AND BLANKETS WERE FOLDED BY PATIENT TO HIS DESIRED WAY OF FOLDING AND THEN WERE PLACED OVER HIM. PATIENT HAS BEEN USING URINAL. PATIENT IS NOW SLEEPING; BREATHING IS NORMAL WITH SYMMETRICAL RISE AND FALL OF CHEST. WILL CONTINUE TO OBSERVE PATIENT.
[2022-10-17 04:00] VITALS: BP 109/60
--- NOTE | 2022-10-17 04:30 | NUR ---
PATIENT HAS SLEPT THROUGHOUT THE NIGHT. PATIENT'S BREATHING IS NORMAL WITH SYMMETRICAL RISE AND FALL OF CHEST. WILL CONTINUE TO OBSERVE PATIENT.
[2022-10-17] MEDS: PIPERACILLIN/TAZOBACTAM 3.375 GM in DEXTROSE 5% 50 ML IV SCH ×3 (05:38→21:00)
[2022-10-17] MEDS: BENZOCAINE/MENTHOL 1 LOZ MM PRN ×3 (05:46→11:41)
[2022-10-17] MEDS: BLOOD GLUCOSE MONITORING 1 DEV DEV FS SCH ×4 (06:43→21:21)
[2022-10-17] MEDS: INSULIN LISPRO SLIDING SCALE 100 UNITS/ML VIAL SUBQ PRN ×2 (06:44→21:32)
[2022-10-17 06:50] LABS: BASOPHILS % (AUTO) 0.3 % (0.0-2.0); EOSINOPHILS # (AUTO) 0.2 K/uL (0-0.4); EOSINOPHILS % (AUTO) 2.5 % (0.0-4.0); HEMOGLOBIN 12.7 g/dL (12.0-18.0); MEAN CORPUSCULAR HEMOGLOBIN 27 pg (27-31); MEAN CORPUSCULAR HGB CONC 33 g/dL (33-37); MEAN CORPUSCULAR VOLUME 83.8 fL (80-94); MONOCYTES % (AUTO) 11.9 % (1.7-9.3); NEUTROPHILS # (AUTO) 5.2 K/uL (1.8-7.7); NEUTROPHILS % (AUTO) 61.3 % (42.2-75.2); PLATELET COUNT (AUTO) 426 K/uL (140-450); RED BLOOD CELL COUNT(AUTO) 4.65 MIL/uL (4.20-6.10); RED CELL DISTRIBUTION WIDTH 14.7 % (11.6-13.7); WHITE BLOOD COUNT (AUTO) 8.5 K/uL (4.8-10.8)
[2022-10-17 06:54] LABS: ANION GAP 8.6 (8-16); CHLORIDE 98 mmol/L (98-107); CREATININE 0.7 mg/dL (0.6-1.3); GLUCOSE 200 mg/dL (74-106); POTASSIUM 3.6 mmol/L (3.5-5.1); SODIUM SERUM 139 mmol/L (136-145); UREA NITROGEN, BLOOD 8 mg/dL (7-18)
--- NOTE | 2022-10-17 07:24 | NUR ---
ENDORSED TO DAY SHIFT NURSE EMMETT FOR CONTINUITY OF CARE. PATIENT IS STABLE.
--- NOTE | 2022-10-17 07:25 | NUR ---
RECEIVED REPORT FROM DETAIL MAKER AND FITTER NURSE FOR CONTINUITY OF CARE. PT IS AWAKE AND STABLE. NO SIGNS OF DISTRESS. WILL REVIEW POC AND CONTINUE TO MONITOR.
[2022-10-17 08:00] VITALS: BP 100/61
[2022-10-17] MEDS: metFORMIN 500 MG TAB PO SCH ×2 (08:29→17:35)
[2022-10-17] MEDS: FUROSEMIDE 20 MG TAB PO SCH (08:30)
[2022-10-17] MEDS: APIXABAN 2.5 MG TAB PO SCH ×2 (08:30→20:59)
[2022-10-17] MEDS: ACETAMINOPHEN 325 MG TAB PO PRN (08:47)
[2022-10-17 12:00] VITALS: BP 110/61
--- NOTE | 2022-10-17 14:15 | NUR ---
10/17/22 RD INITIAL ASSESSMENT COMPLETED PLEASE REFER TO NUTRITION ASSESSMENT UNDER CARE ACTIVITY FOR ESTIMATED NUTRITIONAL NEEDS. 1. CONTINUE WITH CURRENT [facility] DIET TOLERATED 2. ENCOURAGED PATIENT TO CONTINUE TO FOLLOW [facility] DIET AND PATIENT CONFIRMED. 3. RD TO FOLLOW-UP 3-5 DAYS, MODERATE RISK JAUN TORRES RD
[2022-10-17 16:00] VITALS: BP 122/65
--- NOTE | 2022-10-17 19:16 | NUR ---
ENDORSED PT TO INDUSTRY OPERATIONS INVESTIGATOR NURSE FOR CONTINUITY OF CARE. MNURUM
--- NOTE | 2022-10-17 19:30 | NUR ---
RECEIVED REPORT FROM DAY SHIFT NURSE EMMETT FOR CONTINUITY OF CARE. PATIENT IS ON HIGH FLOW NC L; BREATHING IS NORMAL WITH SYMMETRICAL RISE AND FALL OF CHEST. IV IS A 20G RAC, NO FLUIDS RUNNING AT THIS TIME. PATIENT IS SLEEPING IN SEMI-FOWLERS POSITION. BED IS IN LOWEST POSITION, WHEELS LOCKED, CALL LIGHT IN PLACE. WILL CONTINUE TO OBSERVE PATIENT.
[2022-10-17 20:00] VITALS: BP 120/69
[2022-10-17] MEDS ORDERED: FUROSEMIDE 40 MG/4 ML VIAL IVP STA (20:23)
[2022-10-17] MEDS: ATORVASTATIN 20 MG TAB PO SCH (20:58)
--- NOTE | 2022-10-17 23:00 | NUR ---
DR. WEATHERS PLACED STAT ORDER FOR PATIENT TO RECEIVE FUROSEMIDE IVP. ADMINISTERED STAT MEDICATION WITH 2100 MEDS. PATIENT TOLERATED ALL MEDS WELL WITH NO ISSUES IN SWALLOWING AND NO ISSUES WITH IV. PATIENT LATER VOIDED IN URINAL. EMPTIED 1,000 ML OF URINE FROM URINAL. PATIENT'S BREATHING IS NORMAL WITH SYMMETRICAL RISE AND FALL OF CHEST. WILL CONTINUE TO OBSERVE PATIENT.
[2022-10-18] VITALS: BP 119/68
--- NOTE | 2022-10-18 01:00 | NUR ---
PATIENT SLEEPING COMFORTABLY. BREATHING IS NORMAL WITH SYMMETRICAL RISE AND FALL OF CHEST. WILL CONTINUE TO OBSERVE PATIENT.
[2022-10-18 04:00] VITALS: BP 118/59
--- NOTE | 2022-10-18 05:00 | NUR ---
PATIENT SLEPT THROUGHOUT THE NIGHT. ASKED PATIENT IF HE HAD A BM. PATIENT STATED NO. ASKED PATIENT IF HE WAS WET OR NEEDED TO BE CHANGED FOR ANY REASON. PATIENT STATED NO, HE DID NOT WANT TO BE CHANGED, HE WAS FINE. LEFT PATIENT ALONE, PATIENT WAS LISTENING TO MUSIC ON HIS PHONE. WILL CONTINUE TO OBSERVE PATIENT.
[2022-10-18] MEDS: PIPERACILLIN/TAZOBACTAM 3.375 GM in DEXTROSE 5% 50 ML IV SCH ×2 (05:38→13:04)
[2022-10-18] MEDS: INSULIN LISPRO SLIDING SCALE 100 UNITS/ML VIAL SUBQ PRN ×2 (06:49→12:11)
[2022-10-18] MEDS: BLOOD GLUCOSE MONITORING 1 DEV DEV FS SCH ×2 (06:49→12:07)
--- NOTE | 2022-10-18 07:17 | NUR ---
RECEIVED REPORT FROM NIGHT NURSE FOR CONTINUITY OF CARE. ASSESSMENT DONE. ALERT AND ORIENTED X 4. RESP. EVEN AND UNLABORED. ON CONTINUOUS O2 @ 4L/NC. NOT IN ANY DISTRESS NOTED. CALL LIGHT KEPT WITHIN REACH. WILL CONTINUE TO MONITOR.
--- NOTE | 2022-10-18 07:30 | NUR ---
ENDORSED TO DAY SHIFT NURSE CARLA FOR CONTINUITY OF CARE. PATIENT IS STABLE.
[2022-10-18 08:00] VITALS: BP 104/62
[2022-10-18] MEDS: metFORMIN 500 MG TAB PO SCH (08:35)
--- NOTE | 2022-10-18 08:35 | NUR ---
SCHEDULED MEDICATIONS GIVEN. TOLERATED WELL.
[2022-10-18] MEDS: APIXABAN 2.5 MG TAB PO SCH (08:36)
[2022-10-18 12:00] VITALS: BP 116/64
--- NOTE | 2022-10-18 12:07 | NUR ---
BS CHECKED 268. INSULIN WAS GIVEN PER SLIDING SCALE.
[2022-10-18] MEDS ORDERED: FURO-570 PO (12:45)
[2022-10-18] MEDS ORDERED: AMOX-1230 PO (13:04)
[2022-10-18] MEDS ORDERED: MUC600 PO (13:07)
--- NOTE | 2022-10-18 15:35 | NUR ---
CALLED [facility], REPOT GIVEN TO TANA URBINA.
--- NOTE | 2022-10-18 16:15 | NUR ---
PT LEFT. DISCHARGE BACK TO [facility]. TRANSPORTED BY [facility] PER GURNEY. ALERT AND ORIENTED X 4. RESP. EVEN AND UNLABORED. ON ROOM AIR. CAST INTACT RT ANKLE. NO C/O PAIN. ID BAND AND IV REMOVED. DISCHARGED PAPERWORKS, SIGNED AND DISCUSS BY PT. REMAINS STABLE.
== END 2022-10-18 16:15 | DRG 871 ==
LOC: MED 17:19 → MTU 19:44
PROVIDERS: ADMIT General Practice; ATTEND General Practice
PROC: 5A0935A Assistance with Respiratory Ventilation, Less than 24 Consecutive Hours, High Flow/Velocity Cannula (ICD-10-PCS; principal; 2022-10-12)
PROC: 5A0935A Assistance with Respiratory Ventilation, Less than 24 Consecutive Hours, High Flow/Velocity Cannula (ICD-10-PCS; 2022-10-13)
PROC: 5A0935A Assistance with Respiratory Ventilation, Less than 24 Consecutive Hours, High Flow/Velocity Cannula (ICD-10-PCS; 2022-10-14)
PROC: 5A0935A Assistance with Respiratory Ventilation, Less than 24 Consecutive Hours, High Flow/Velocity Cannula (ICD-10-PCS; 2022-10-15)
PROC: 5A0935A Assistance with Respiratory Ventilation, Less than 24 Consecutive Hours, High Flow/Velocity Cannula (ICD-10-PCS; 2022-10-16)
PROC: 5A0935A Assistance with Respiratory Ventilation, Less than 24 Consecutive Hours, High Flow/Velocity Cannula (ICD-10-PCS; 2022-10-17)
PROC: 5A0935A Assistance with Respiratory Ventilation, Less than 24 Consecutive Hours, High Flow/Velocity Cannula (ICD-10-PCS; 2022-10-18)
DX: A41.9 Sepsis, unspecified organism (principal); J18.9 Pneumonia, unspecified organism; J96.01 Acute respiratory failure with hypoxia; E87.20 Acidosis, unspecified; J90 Pleural effusion, not elsewhere classified; J81.1 Chronic pulmonary edema; E44.0 Moderate protein-calorie malnutrition; E87.3 Alkalosis; I50.9 Heart failure, unspecified; Z20.822 Contact with and (suspected) exposure to COVID-19; Z68.23 Body mass index [BMI] 23.0-23.9, adult
CPT/HCPCS: 36415; 71045; 80048; 80053; 82948; 83036; 83605; 83735; 83880; 84484; 85025; 85610; 85730; 87040; 87081; 93971; 96365; 96367; 97110; 97112; 97163-GP; 97530; 99291; J1940; J1956; J2270; J2543; J3475; J7060; Q0092